=== PATIENT | female | born 2000 | race Caucasian/White ===

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

== ENCOUNTER → 2019-04-30 14:22 | Emergency (ER) | payer BC ==
[~2019-04-30 14:22] MED LIST: Acetaminophen TAB* 325 MG PO ONE; Al Hydrox/Mg Hydrox/Simet LIQ* 30 ML UDC PO ONE; Lidocaine 2% VISCOUS* 15 ML UDC PO ONE; NS 0.9% 1000 ML** 1,000 ML IV ONE
--- NOTE | 2019-04-30 14:42 | ED ---
HPI Chest Pain - HPI Summary HPI Summary: This patient is a 18 year old F presenting to ED with a chief complaint of sudden onset of pleurtic CP since 1330 this afternoon. Patient woke up feeling congested this morning, but the pain only began in the afternoon. The pain is described as sharp CP, worse w inspiration that began at rest, then became a continuous pressure radiating to the back below both shoulder blades. She reports hx of intermittent pains before but not as severe. Patient denies any symptoms in the past couple of days. She took Concerta today. The patient rates the pain 6/10 in severity. Symptoms aggravated by inspiration. Symptoms alleviated by nothing. Patient reports SOB, palpitations (which she sometimes gets). PMHx of GERD. No hx blood clots. On control - History of Current Complaint Chief Complaint: EDChestPainROMI Time Seen by Provider: 04/30/19 14:33 Hx Obtained From: Patient Hx Last Menstrual Period: BEGINNING SEP Onset/Duration: Started Hours Ago - 1330 this afternoon, Still Present Timing: Constant Initial Severity: Moderate Current Severity: Moderate Pain Intensity: 6 Pain Scale Used: 0-10 Numeric Chest Pain Radiates: Yes Chest Pain Radiates To:: Back - Below shoulders Character: Fast, Pressure/Squeezing - Continuous, Sharp/Stabbing - Initially Aggravating Factor(s): Nothing Alleviating Factor(s): Nothing Associated Signs and Symptoms: Positive: Chest Pain, Shortness of Breath, Palpitations - Allergy/Home Medications Allergies/Adverse Reactions: Allergies Allergy/AdvReac Type Severity Reaction Status Date / Time Latex, Natural Rubber Allergy Rash Verified 03/30/18 08:07 PMH/Surg Hx/FS Hx/Imm Hx Endocrine/Hematology History: Denies: Hx Diabetes Cardiovascular History: Denies: Hx Deep Vein Thrombosis, Hx Hypertension, Hx Pacemaker/ICD, Other Cardiovascular Problems/Disorders Respiratory History: Denies: Hx Asthma, Other Respiratory Problems/Disorders GI History: Reports: Hx Gastroesophageal Reflux Disease, Hx Ulcer - POSSIBLE Denies: Other GI Disorders Musculoskeletal History: Denies: Other Musculoskeletal History Sensory History: Reports: Hx Contacts or Glasses - CONTACTS Denies: Hx Hearing Aid Opthamlomology History: Reports: Hx Contacts or Glasses - CONTACTS Psychiatric History: Denies: Hx Panic Disorder - Surgical History Surgery Procedure, Year, and Place: T&A. SANDRO EAR TUBES X3. Hx Anesthesia Reactions: No Infectious Disease History: No Infectious Disease History: Denies: Traveled Outside the [place] in Last 30 Days - Family History Known Family History: Positive: Cardiac Disease - Father had MA at age of 23, Hypertension, Other - Negative: DVT - Social History Alcohol Use: Occasionally Hx Substance Use: No Substance Use Type: Reports: None Hx Tobacco Use: No Smoking Status (MU): Never Smoked Tobacco Have You Smoked in the Last Year: No Review of Systems Positive: Palpitations, Chest Pain - Radiates to back Positive: Shortness Of Breath All Other Systems Reviewed And Are Negative: Yes Physical Exam - Summary Physical Exam Summary: Constitutional: Well-developed, Well-nourished, Alert. (-) Distressed Skin: Warm, Dry HENT: Normocephalic; Atraumatic Eyes: Conjunctiva normal Neck: Musculoskeletal ROM normal neck. (-) JVD, (-) Stridor, (-) Nuchal rigidity Cardio: Tachycardic; Intact distal pulses; Radial pulses are 2+ and symmetric. ( -) Murmur Pulmonary/Chest wall: Effort normal. (-) Respiratory distress, (-) Wheezes, (-) Rales Abd: Soft, (-) tenderness, (-) Distension, (-) Guarding, (-) Rebound Musculoskeletal: (-) Edema Lymph: (-) Cervical adenopathy Neuro: Alert, Oriented x3 Psych: Slightly anxious Triage Information Reviewed: Yes Vital Signs On Initial Exam: Initial Vitals Temp Pulse Resp BP Pulse Ox 97.9 F 116 21 128/85 98 04/30/19 14:26 04/30/19 14:26 04/30/19 14:26 04/30/19 14:26 04/30/19 14:26 Vital Signs Reviewed: Yes Diagnostics - Vital Signs Vital Signs Temp Pulse Resp BP Pulse Ox 04/30/19 14:38 107 04/30/19 14:26 97.9 F 116 21 128/85 98 - Laboratory Result Diagrams: 04/30/19 15:02 04/30/19 15:02 Lab Statement: Any lab studies that have been ordered have been reviewed, and results considered in the medical decision making process. - Radiology CXR Radiology Interpretation Completed By: Radiologist Summary of Radiographic Findings: No radiographic evidence of acute cardiopulmonary disease. Dr. Zamorano has reviewed this radiology report. - EKG 1424 Cardiac Rate: Tachycardia - 120 BPM EKG Rhythm: Sinus Tachycardia ST Segment: Normal Ectopy: None Summary of EKG Findings: An EKG at 1424 reveals sinus tachycardia at 120 BPM, nml axis, nml intervals. No STEMI. No acute changes. Re-Evaluation - Re-Evaluation First Eval Re-Evaluation Time: 16:37 Comment: Discussed results with patient. Patient reports feeling better and safe for discharge. To return for continued SOB or CP, synope. Patient will be discharged home with dx of SOB and pleuritic CP. Patient understands and agrees with this plan. Chest Pain Course/Dx - Course Course Of Treatment: 18 y/o F p/w SOB and pleuritic CP. The patient is well appearing, VS notable for tachycardia. Given the patient's clinical presentation, highest on differential is atypical CP vs PE. Although less likely, differential also includes the following: --Pneumothorax: Equal breath sounds, story inconsistent since gradual onset of symptoms. CXR shows no evidence of pneumothorax. Unlikely. --Cardiac tamponade: The history and physical are not concerning for tamponade. No Pulsus Paradoxus, no tachypnea. Unlikely. --Mediastinitis or esophageal rupture: The history is not consistent , as the patient has had no recent history of significant wretching, instrumentation, or mediastinal surgeries. Unlikely. --Aortic dissection: The patient does not describe the classical tearing chest pain radiating into the back, is very comfortable on exam, no widening of mediastinum, low suspicion. - -PE: tachycardic, check d dimer. --ACS: The initial EKG shows no ischemic changes. Trop ordered - Diagnoses Provider Diagnoses: Pleuritic chest pain, SOB (shortness of breath) Discharge - Sign-Out/Discharge Documenting (check all that apply): Patient Departure - Discharge Patient Received Moderate/Deep Sedation with Procedure: No - Discharge Plan Condition: Stable Disposition: HOME Patient Education Materials: Chest Pain (ED), Shortness of Breath (ED) Referrals: Emily Irene NP [Primary Care Provider] - 3 Days Additional Instructions: You were seen in the emergency department for chest pain and shortness of breath. X-ray was normal Your labs did not show any evidence of blood clots or heart attack. If any studies were not completed at the time of discharge you will be called with the relevant results. Please follow up with your primary care doctor in next 2-3 days and return to emergency department for continued short of breath, chest pain, passing out, worsening or concerning symptoms. - Billing Disposition and Condition Condition: STABLE Disposition: Home - Attestation Statements Document Initiated by Darren: Yes Documenting Scribe: Christophe Roberts Provider For Whom Darren is Documenting (Include Credential): Kamini Zamorano MD Scribe Attestation: I, Christophe Roberts, scribed for Kamini Zamorano MD on 04/30/19 at 1808. Scribe Documentation Reviewed: Yes Provider Attestation: The documentation as recorded by the Christophe espinosa accurately reflects the service I personally performed and the decisions made by me, Kamini Zamorano MD Status of Scribe Document: Viewed
[2019-04-30 15:18] LABS: ABS Basophils 0.1 10^3/ul (0-0.2); ABS Lymphocytes 2.2 10^3/ul (1.0-4.8); ABS Monocytes 0.3 10^3/ul (0-0.8); ABS Neutrophils 3.6 10^3/ul (1.5-7.7); Eosinophil % 0.7 %; Hematocrit 40 % (35-47); Lymphocyte % 34.8 %; Mean Corpuscular HGB Conc 35 g/dL (31-36); Mean Corpuscular Hemoglobin 31 pg (27-31); Mean Corpuscular Volume 90 fL (80-97); Mean Platelet Volume 7.5 fL (7.4-10.4); Nucleated Red Blood Cells % 0.1; Platelet Count 274 10^3/uL (150-450); Red Blood Count 4.46 10^6 /uL (3.70-4.87); Red Cell Distribution Width 12 % (10-15); White Blood Count 6.2 10^3/uL (3.5-10.8)
--- OUTSIDE RECORDS SUMMARY | 2019-04-30 15:20 | XMS REPORT | Continuity of Care Document ---
:2000 External Reference #:[id number] Author Name Bobbykeshia Christy Care Team Providers Name Role Phone Parris Yañez MD Primary Care Physician Unavailable Payers Date Identification Numbers Payment Provider Subscriber Effective: 2018 Policy Number: [id number] [employer] PayID: [id number] [address] [address] [place] [address] Effective: 2015 Policy Number: [id number] [employer] Expires: 2019 PayID: [id number] [address] [address] [place] [address] Expires: 2016 Policy Number: [id number] [employer] PayID: [id number] [address] [address] [place] [address] Problems Description No Active Problems Family History Date Family Member(s) Observation Comments General No Current Problems Father Alive And Well Age 50 Mother Alive And Well Age 49 Siblings 1 Age 21 Social History Type Date Description Comments Sex Unknown Marital Status Single Occupation Student ETOH Use Currently consumes 2 per week - Wine or alcohol Vodka Tobacco Use Start: Unknown Patient has never smoked Smoking Status Reviewed: 04/11/19 Patient has never smoked Exercise Exercises sporadically Type/Frequency Allergies, Adverse Reactions, Alerts Active Allergies Reaction Severity Comments Date NKDA 06/21/2015 Latex 07/04/2015 Medications Active Medications SIG Qnty Indications Ordering Provider Date Methylphenidate one po qd 30tabs R41.840 Emily Irene, 04/11/2019 Hydrochloride ER N.P. 36mg Tablets ER Apri 1 by mouth 84tabs Z01.419 Emily Irene, 07/14/2017 0.15-30mg-mcg Tablets every day N.P. History Medications Concerta one tablet po daily 30tabs R41.840 Emily Irene, 03/28/2019 - 18mg N.P. 04/11/2019 Tablets ER Amphetamine-Dextroa one po daily 30caps R41.840 Emily Irene, 03/16/2019 - mphet ER N.P. 03/28/2019 20mg Caps ER 24HR Amphetamine-Dextroa 1 by mouth twice a 60tabs R41.840 Parris 2017 - mphetamine day Leilani Yañez 03/16/2019 20mg Tablets Amphetamine-Dextroa one by mouth twice a 60tabs R41.840 Emily Irene, - mphetamine day as needed N.P. 10/01/2018 15mg attention deficit Tablets Escitalopram 1 by mouth every day 30tabs F32.9 Emily Irene, 02/12/2018 - Oxalate (not taking) N.P. 03/28/2019 20mg Tablets Propranolol HCL take 1 tablet by 30tabs F32.9 Emily Irene, 01/08/2018 - mouth 30-60 minutes N.P. 03/28/2019 40mg Tablets before testing Hydroxyzine HCL 1 tablets by mouth 30tabs F32.9 Emily Irene, 01/08/2018 - every 6-8 hours as N.P. 03/28/2019 25mg Tablets needed for anxiety Escitalopram 1 by mouth every day 30tabs F32.9 Emily Irene, 01/08/2018 - Oxalate N.P. 02/12/2018 10mg Tablets Tamiflu 1 by mouth once 10caps Emily Irene, 11/26/2017 - 75mg daily N.P. 12/06/2017 Capsules Cleocin 1 applicator 1units Emily Irene, 07/22/2017 - 2% Cream intravaginally at N.P. 07/29/2017 bedtime for 7 nights Fluconazole one by mouth february 2tabs B37.3 Emily Irene, 07/14/2017 - 150mg repeat in 3 days as N.P. 01/08/2018 Tablets needed No Active Unknown 06/21/2015 - Medications 07/25/2015 Magnesium 1 by mouth every day Unknown - 500mg 03/28/2019 Capsules Vitamin D-1000 1 by mouth every day Unknown - Maximum Strength 03/28/2019 1000Unit Tablets Control Unknown - 05/18/2018 Immunizations CPT Code Status Date Vaccine Lot # [id number] Given 10/31/2018 Influenza Virus Vaccine, Quadrivalent, Split, Preservative Free Vital Signs Date Vital Result Comment 04/11/2019 2:19pm Height 61.5 inches 5'1.50" Weight 104.12 lb Heart Rate 110 /min BP Systolic 112 mmHg BP Diastolic 77 mmHg Body Temperature 96.9 F O2 % BldC Oximetry 97 % BMI (Body Mass Index) 19.4 kg/m2 Height Percentile 14 % Weight Percentile 7th 03/28/2019 2:04pm Height 61.5 inches 5'1.50" Weight 204.25 lb Heart Rate 121 /min BP Systolic 114 mmHg BP Diastolic 75 mmHg Body Temperature 98.0 F O2 % BldC Oximetry 99 % BMI (Body Mass Index) 38.0 kg/m2 Height Percentile 14 % Weight Percentile >97th 03/16/2019 2:33pm Height 61.5 inches 5'1.50" Weight 107.00 lb Heart Rate 96 /min BP Systolic 115 mmHg BP Diastolic 75 mmHg Body Temperature 99.1 F O2 % BldC Oximetry 98 % BMI (Body Mass Index) 19.9 kg/m2 Height Percentile 14 % Weight Percentile 1110/01/2018 2:23pm Heart Rate 88 /min BP Systolic 98 mmHg BP Diastolic 62 mmHg Respiratory Rate 16 /min 07/19/2018 11:13am Height 61.5 inches 5'1.50" Weight 111.00 lb Heart Rate 99 /min BP Systolic 98 mmHg BP Diastolic 60 mmHg Body Temperature 98.9 F O2 % BldC Oximetry 98 % BMI (Body Mass Index) 20.6 kg/m2 Height Percentile 14 % Weight Percentile 1805/19/2018 2:01pm Height 61.5 inches 5'1.50" Weight 112.00 lb Heart Rate 91 /min BP Systolic Sitting 105 mmHg BP Diastolic Sitting 72 mmHg O2 % BldC Oximetry 99 % BMI (Body Mass Index) 20.8 kg/m2 Blood Pressure Percentile 0 % Height Percentile 14 % Weight Percentile 02/12/2018 11:24am Weight 111.00 lb Heart Rate 96 /min BP Systolic 102 mmHg BP Diastolic 60 mmHg Body Temperature 98.5 F O2 % BldC Oximetry 98 % Blood Pressure Percentile 0 % Weight Percentile 01/08/2018 11:40am Weight 114.00 lb Heart Rate 82 /min BP Systolic 110 mmHg BP Diastolic 66 mmHg Body Temperature 98.3 F O2 % BldC Oximetry 96 % Blood Pressure Percentile 0 % Weight Percentile 07/14/2017 2:33pm Height 61 inches 5'1" Weight 123.50 lb Heart Rate 78 /min BP Systolic 120 mmHg BP Diastolic 66 mmHg Body Temperature 99.1 F O2 % BldC Oximetry 96 % BMI (Body Mass Index) 23.3 kg/m2 Blood Pressure Percentile 85 % Height Percentile 10 % Weight Percentile 04/03/2016 10:53am Height 61 inches 5'1" Weight 100.00 lb Pain Level 6 BMI (Body Mass Index) 18.9 kg/m2 Blood Pressure Percentile 0 % Height Percentile 11 % Weight Percentile 03/14/2016 4:09pm Height 61 inches 5'1" Weight 100.00 lb Pain Level 1 BMI (Body Mass Index) 18.9 kg/m2 Blood Pressure Percentile 0 % Height Percentile 11 % Weight Percentile 02/19/2016 4:14pm Height 61 inches 5'1" Weight 100.00 lb Pain Level 0 BMI (Body Mass Index) 18.9 kg/m2 Blood Pressure Percentile 0 % Height Percentile 11 % Weight Percentile 01/30/2016 3:11pm Height 61 inches 5'1" Weight 100.00 lb BMI (Body Mass Index) 18.9 kg/m2 Blood Pressure Percentile 0 % Height Percentile 11 % Weight Percentile 01/25/2016 3:58pm Height 61 inches 5'1" Weight 100.00 lb BMI (Body Mass Index) 18.9 kg/m2 Blood Pressure Percentile 0 % Height Percentile 11 % Weight Percentile 08/16/2015 4:36pm Height 61 inches 5'1" Weight 100.00 lb Pain Level 0 BMI (Body Mass Index) 18.9 kg/m2 Height Percentile 12 % Weight Percentile 07/25/2015 3:44pm Height 61 inches 5'1" Weight 100.00 lb BMI (Body Mass Index) 18.9 kg/m2 Height Percentile 12 % Weight Percentile 07/04/2015 3:25pm Height 61 inches 5'1" Weight 101.00 lb Pain Level 6 BMI (Body Mass Index) 19.1 kg/m2 Height Percentile 12 % Weight Percentile 1306/21/2015 3:38pm Height 61 inches 5'1" Weight 101.00 lb Pain Level 4 BMI (Body Mass Index) 19.1 kg/m2 Blood Pressure Percentile 0 % Height Percentile 12 % Weight Percentile 13th Results Test Date Facility Test Result H/L Range Note GC/Chlamydia 03/28/2019 [facility] Chlamydia Negative Negative Amplified Rna [address] trachomatis Rna [place], [place] [id number] [phone] Neisseria gonorrhoeae (GC) Rna Negative Negative Laboratory test 07/19/2018 [facility] Cytology SEE RESULT [address] [place], [place] [id number] [phone] Laboratory test 07/14/2017 [facility] Cytology SEE RESULT [address] [place], [place] [id number] [phone] GC/Chlamydia 07/14/2017 [facility] Chlamydia Negative N Negative Amplified Rna [address] trachomatis Rna [place], [place] [id number] [phone] Neisseria gonorrhoeae (GC) Rna Negative N Negative Laboratory 07/14/2017 [facility] Human POSITIVE Abnormal Negative 3 test finding [address] [place] [address] Virus Rna [phone] 1 SEE RESULT BELOW Name: GLADYS SNEED : [address]: Emily Irene NP Acct: [id number] Unit: [id number] AGE: 18 Location: [facility] Re07/19/18 SEX: F Status: REG REF SPEC: [id number] DANNY: 07/19/18-1348 [facility] DR: Emily Irene NP REQ: [id number] RECD: 07/19/18 STATUS: SOUT _ ORDERED: TP IMAGE ANALYS COMMENTS: [id number] Negative for Intraepithelial lesion or Malignancy A. Ectocervical/Endocervical Specimen Adequacy: Satisfactory of evaluation Transformation zone component identified Patient Information: HPV: Thin Layer Pap Test w/reflex to high risk HPV RNA testing when ASCUS Actual Specimen Date: 07/19/18 Last Menstrual Date: 07/03/18 Spec Date if unknown: 07/2018 ?: N Post Menopausal?: N Hysterectomy?: N Previous Abnormal Pap Smears?:Y If Yes, enter Diagnosis: Atypical Squamous cells of uncertain significance. Signed by and Reported on: COLE Katz(ASCP) [id number] This Pap test was evaluated with the assistance of the [employer] Test Imaging System. Due to cytologic findings at the teacher citizenship microscope, comprehensive manual rescreening by a Motivational Speaker may be required. The Pap Smear is a screening test designed to aid in the detection of premalignant and malignant conditions of the uterine cervix. It is not a diagnostic procedure and should not be used as the sole means of detecting cervical cancer. Both false- positive and false- negative reports do occur. Depending on your risk status, a Pap smear should be obtained and evaluated every 1-3 years. END OF REPORT DEPARTMENT OF PATHOLOGY, [address] [place] [address] Rustam Baez M.D. Director [facility] # [id number] 2 SEE RESULT BELOW Name: GLADYS SNEED Sky : [address]: Emily Irene NP Acct: [id number] Unit: [id number] AGE: 17 Location: [facility] Re07/14/17 SEX: F Status: REG REF SPEC: [id number] DANNY: 07/14/[address]: Emily Irene NP REQ: [id number] RECD: 07/14/17 STATUS: SOUT _ ORDERED: TP IMAGE ANAL, INVESTIGATOR WELFARE PHYS INTERP, HPV/Thin Prep COMMENTS: NO TRACKING FINAL DIAGNOSIS EPITHELIAL CELL ABNORMALITIES Atypical squamous cells of undetermined significance A. Ectocervical/Endocervical Specimen Adequacy: Satisfactory of evaluation Transformation zone component identified Patient Information: HPV: Thin Layer Pap Test w/reflex to high risk HPV RNA testing when ASCUS Actual Specimen Date: 07/14/17 Last Menstrual Date: 06/24/17 ?: N Post Menopausal?: N Hysterectomy?: N Previous Abnormal Pap Smears?:N Date Time Test Result Flag (u) Normal Range 07/14/17 1632 HPV RNA POSITIVE H Negative The high-risk HPV types detected by the assay include: 16, 18, 31, 33, 35, 39, 45, 51, 52, 56, 58, 59, 66, and 68. Signed (signature on file) Rustam Baez MD 1638 This Pap test was evaluated with the assistance of the [employer] Test Imaging System. Due to cytologic findings at the teacher citizenship microscope, comprehensive manual rescreening by a Motivational Speaker may be required. The Pap Smear is a screening test designed to aid in the detection of premalignant and malignant conditions of the uterine cervix. It is not a diagnostic procedure and should not be used as the sole means of detecting cervical cancer. Both false- positive and false- negative reports do occur. Depending on your risk status, a Pap smear should be obtained and evaluated every 1-3 years. END OF REPORT * ML=Testing performed at Main Lab DEPARTMENT OF PATHOLOGY, [address] [place] [address] Rustam Baez M.D. Director [facility] # [id number] RUN DATE: 07/16/17 [facility] LAB LIVE PAGE 1 Patient: GLADYS SNEED [id number] (Continued) 3 The high-risk HPV types detected by the assay include: 16, 18, 31, 33, 35, 39, 45, 51, 52, 56, 58, 59, 66, and 68. Procedures Date Code Description Status 01/30/2016 40399 Walking Cast Completed 07/04/2015 99909 Walking Cast Completed Encounters Type Date Location Provider Dx Diagnosis Office Visit 03/28/2019 [facility] Internal Emily Irene, R41.840 Attention and 2:00p Medicine - Ccmob N.P. concentration deficit Z11.3 Encntr screen for infections w sexl mode of transmiss Office Visit 03/16/2019 2:00p [facility] Internal Emily Irene, R41.840 Attention and Medicine - N.P. concentration Ccmob deficit Office Visit 10/01/2018 2:00p DoNotUse Pelon Irene, R41.840 Attention and Internal N.P. concentration Medicine-Arrow deficit wood Office Visit 07/19/2018 11:00a [facility] Internal Emily Irene, Z01.411 Encntr for expansion envelope maker hand exam Medicine - N.P. (general) (routine) Ccmob w abnormal findings R11.0 Nausea R87.610 Atyp squam cell of undet signfc cyto smr crvx (Asc-US) Z91.89 Oth personal risk factors, not elsewhere classified R87.810 Cervical high risk HPV Dna test positive F90.0 Attn-defct hyperactivity disorder, predom inattentive type Office Visit 05/19/2018 2:00p [facility] Internal Gregory Mccabe, Z00.01 Encounter for Medicine - M.D. general adult Ccmob medical exam w abnormal findings Z00.00 Encntr for general adult medical exam w/o abnormal findings Office Visit 02/12/2018 11:20a [facility] Internal Emily Irene, F41.1 Generalized Medicine - N.P. anxiety disorder Ccmob Office Visit 01/08/2018 11:40a [facility] Internal Emily Irene, F32.9 Major depressive Medicine - N.P. disorder, single Ccmob episode, unspecified Office Visit 07/14/2017 2:20p [facility] Internal Emily Irene, Z00.00 Encntr for general Medicine - N.P. adult medical exam Ccmob w/o abnormal findings Z11.51 Encounter for screening for human papillomavirus (HPV) B37.3 Candidiasis of vulva and vagina Office Visit 04/03/2016 10:30a Johnathon Felder [id number] [facility] deltoid C.M.A. ligament of left ankle, subs encntr Office Visit 03/14/2016 3:50p Johnathon Felder [id number] [facility] deltoid C.M.A. ligament of left ankle, subs encntr Office Visit 02/19/2016 3:30p Johnathon Felder [id number] [facility] deltoid C.M.A. ligament of left ankle, subs encntr Office Visit 01/30/2016 3:10p Johnathon Felder [id number] [facility] deltoid C.M.A. ligament of left ankle, subs encntr Office Visit 01/25/2016 3:40p Johnathon Felder [id number] [facility] deltoid C.M.A. ligament of left ankle, subs encntr Office Visit 08/16/2015 3:50p Johnathon Felder [id number] [facility] deltoid C.M.A. ligament of left ankle, subs encntr Office Visit 07/25/2015 3:20p [facility] [id number] [facility] deltoid C.M.A. ligament of left ankle, subs encntr Office Visit 07/04/2015 3:00p [facility] [id number] [facility] deltoid C.M.A. ligament of left ankle, subs encntr Office Visit 06/21/2015 3:45p Orthopedic Lesa Olguin, 719.47 [facility] Foot C.M.A. Plan of Treatment 04/11/2019 - Emily Irene, N.P.R41.840 Attention and concentration deficitNew Medication:Methylphenidate Hydrochloride ER 36 mg - one po qdComments:For your attention deficit disorder: I have prescribed Concerta 36 mg for you. If you find this is not helpful, or you are unable to sleep, please contact the office.
[2019-04-30 15:25] LABS: INR 0.97 (0.82-1.09)
[2019-04-30 15:35] LABS: ALT 10 U/L (7-52); AST 13 U/L (13-39); Albumin 4.5 g/dL (3.2-5.2); Albumin/Globulin Ratio 1.6 (1-3); Alkaline Phosphatase 36 U/L (34-104); Anion Gap 6 mmol/L (2-11); BUN/Creatinine Ratio 10.1 (8-20); Blood Urea Nitrogen 8 mg/dL (6-24); CO2 Carbon Dioxide 25 mmol/L (22-32); Calcium 10.2 mg/dL (8.6-10.3); Chloride 106 mmol/L (101-111); EGFR African American 113.4 (>60); EGFR Non-African American 93.8 (>60); Globulin 2.8 g/dL (2-4); Glucose 103 mg/dL (70-100); Potassium 4.4 mmol/L (3.5-5.0); Sodium 137 mmol/L (135-145); Total Protein 7.3 g/dL (6.4-8.9)
[2019-04-30 15:41] LABS: HCG Pregnancy < 0.60 mIU/mL
[2019-04-30 17:00] VITALS: BP 114/81
== END | disposition home or self-care (01) ==
LOC: ED 14:22
DX: R07.81 Pleurodynia (principal); R06.02 Shortness of breath; Z91.040 Latex allergy status
CPT/HCPCS: 36415; 71046; 80053; 84443; 84484; 84702; 85025; 85379; 85610; 93005; 96360; 99283; A9270-GY